=== PATIENT | female | born 1990 | race Caucasian/White ===

== ENCOUNTER → 2017-02-01 | Outpatient (CLI) | payer OTHER ==
[2017-02-01 15:48] LABS: CH 32.5; CHCM 34.8; HCT 37.1 % (34.0-46.0); HDW 2.41; HGB 12.9 gm/dL (11.4-16.0); MCH 32.8 pg (25.0-35.0); MCHC 34.9 g/dL (31.0-37.0); MCV 93.8 fL (80.0-100.0); RBC 3.95 m/uL (3.80-5.40); RDW 12.6 % (11.5-15.5); WBC 12.9 k/uL (3.8-10.6)
--- NOTE | 2017-02-01 15:51 | US ---
EXAMINATION TYPE: US OB <= 14 wk fetus late first trimester. DATE OF EXAM: 02/01/2017 3:21 PM COMPARISON: NONE CLINICAL HISTORY: Z36 confirm dates. G1 EXAM PERFORMED: Transabdominal (TA) EXAM MEASUREMENTS: GESTATIONAL AGE / DATING Physician Established: (13 weeks/2 days) EDC: 08/07/2017 Dates by LMP: (13 weeks/2 days) EDC: 08/07/2017 Dates by First Scan: (today) Dates by Current Scan for: (13 weeks/3 days) EDC: 08/06/2017 MATERNAL ANATOMY Uterus: 13.0 c 9.2 x 6.1cm Right Ovary: not seen Left Ovary: 3.4 x 2.9 x 1.7cm with CL of Post CDS / Adnexa: wnl Presence of free fluid: no Presence of corpus luteal cyst: in left ovary = 1.6 x 1.8 x 1.0cm Presence of subchorionic bleed: no GESTATION / SURVEY CRL: 7.2 (13 weeks/3 days) Yolk Sac (normal less than 6mm): not seen Heart Rate: 153 bpm Rhythm: Normal IUP: Viable IUP Date of LMP: 10/31/2016 Beta HcG (if available): NA Single live intrauterine gestation is confirmed as gestational sac and pole are seen. The yolk sac is not clearly identified. No free fluid is seen in pelvis. Right ovary is not seen. Left ovary is identified. Within left ovary there is 1.8 cm hypoechoic perip heral lesion felt to reflect corpus luteal cyst. IMPRESSION: Single live intrauterine gestation is confirmed, mean crown-rump length is 7.2 cm corresp onding to a 13 week 3 day old fetus.
[2017-02-01 15:56] LABS: Glucose 80 mg/dL (74-99); Non-African American GFR(MDRD) >60 (>60 ml/min/1.73 sqM)
[2017-02-01 16:28] LABS: Hepatitis B Surface Ag Index 0.07
== END ==
LOC: RADUSWWP 15:02
PROVIDERS: ATTEND Obstetrics & Gynecology
DX: Z36 Encounter for antenatal screening of mother (principal); Z34.01 Encounter for supervision of normal first pregnancy, first trimester; Z3A.13 13 weeks gestation of pregnancy
CPT/HCPCS: 36415; 76801; 82565; 82947; 85027; 86762; 86780; 86850; 86900; 86901; 87340

== ENCOUNTER 2017-04-11 10:45 | Outpatient (CLI) | payer SELFPAY ==
[2017-04-11 11:24] VITALS: BP 132/65; PULSE 90; RESP 16; TEMP 97.5
--- NOTE | 2017-04-11 20:21 | P.MSEPDOC ---
Presenting Problems - Arrival Data Date of Arrival on Unit: 04/11/17 Time of Arrival on Unit: 10:47 Mode of Transport: Ambulatory - Complaint OB-Reason for Admission/Chief Complaint: Observation/Evaluation Comment: ffn Medical History - Information : 1 Para: 0 Term: 0 : 0 Abortions: Spontaneous or Elective: 0 Number of Living Children: 0 - Gestational Age Expected Date of Delivery: 08/07/17 Gestational Age by GERMAN (wks/days): 23 Weeks and 1 Days Review of Systems - Review of Systems Constitutional: No problems Breast: No problems ENT: No problems Cardiovascular: No problems Respiratory: No problems Gastrointestinal: No problems Genitourinary: No problems Musculoskeletal: No problems Neurological: No problems Skin: No problems Vital Signs - Temperature Temperature: 97.5 F Temperature Source: Temporal Artery Scan - Pulse Right Brachial Pulse Rate: 90 - Respirations Respiratory Rate: 16 Oxygen Delivery Method: Room Air - Blood Pressure Right Arm Blood Pressure: 132/65 Blood Pressure Mean: 87 Blood Pressure Source: Automatic Cuff Medical Screen Scoring (Pre) - Cervical Exam Dilation: Exam Deferred - Uterine Contractions Frequency: N/A - Maternal Vital Signs Maternal Temperature: N/A Maternal Blood Pressure: N/A Signs of Preeclampsia: N/A Maternal Respirations: N/A - Maternal Trauma Maternal Trauma: N/A - Assessment Baseline FHR: 140 Heart Rate - NICHD Category: Category II (Indeterminate) = 3 - Total Score Total Score (Pre): 3 - Level of Risk Level of Risk: Low (0-5) Physician Notification (Post) - Physician Notified Physician Notified Date: 04/11/17 Physician Notified Time: 12:36 Spoke With: Dr. Laurent - Notification Comment Comment: Doctor at pt bedside Disposition - Disposition OB Disposition: Discharge to home, Written follow up instructions reviewed Discharge Date: 04/11/17 Discharge Time: 13:20 I agree with the RN Medical Screening Exam: Yes Risk & Benefit of care provided described in d/c instruction: Yes Diagnosis: 23 WEEKS GESTATION OF
== END 2017-04-11 13:20 | disposition home or self-care (01) ==
LOC: FBPOP 10:45
PROVIDERS: ATTEND Obstetrics & Gynecology
DX: Z34.92 Encounter for supervision of normal pregnancy, unspecified, second trimester (principal); Z3A.23 23 weeks gestation of pregnancy
CPT/HCPCS: 82731; 99213

== ENCOUNTER 2017-08-01 22:47 | Emergency (ER) | payer OTHER ==
[2017-08-01] MEDS ORDERED: SODIUM CHLORIDE 0.9% 1,000 ML IV STA (23:04)
[2017-08-01] MEDS ORDERED: KETOROLAC 30 MG/ML 1 ML VIAL IVP STA (23:11)
[2017-08-01] MEDS ORDERED: ONDANSETRON 4 MG/2 ML VIAL IVP STA (23:11)
[2017-08-01] MEDS ORDERED: HYDROmorphone 1 MG/ML 1 ML SYRINGE IVP STA (23:11)
[2017-08-01 23:29] LABS: Basophils # (A) 0.1 k/uL (0-0.2); Basophils % (A) 1 %; CH 28.8; CHCM 34.2; Eosinophils # (A) 0.3 k/uL (0-0.7); Eosinophils % (A) 2 %; HCT 40.5 % (34.0-46.0); HDW 2.75; HGB 13.5 gm/dL (11.4-16.0); Luc # (Auto) 0.15; Luc % (Auto) 1; Lymphocytes # (A) 3.7 k/uL (1.0-4.8); Lymphocytes % (A) 26 %; MCH 28.1 pg (25.0-35.0); MCHC 33.2 g/dL (31.0-37.0); MCV 84.5 fL (80.0-100.0); Mean Platelet Volume 7.5; Monocytes # (A) 0.6 k/uL (0-1.0); Monocytes % (A) 4 %; Neutrophils # (A) 9.5 k/uL (1.3-7.7); Neutrophils % (A) 66 %; RBC 4.79 m/uL (3.80-5.40); RDW 13.8 % (11.5-15.5); WBC 14.3 k/uL (3.8-10.6); WBC (Perox) 14.55
--- NOTE | 2017-08-01 23:29 | ED ---
Abdominal Pain HPI - General Chief Complaint: Abdominal Pain Stated Complaint: Abd Pain Time Seen by Provider: 08/01/17 23:03 Source: patient, RN notes reviewed Mode of arrival: wheelchair Limitations: no limitations - History of Present Illness Initial Comments: 26-year-old female presents emergency Department chief complaint right flank pain. Patient states she had sudden onset of pain 2 hours ago. Patient has had nausea and vomiting. Patient has fever, chills, dysuria, hematuria. Patient has no prior history of kidney stones. Patient's a prior 2 months ago. Patient states the pain is unbearable. Patient states nothing makes it feel better or worse. - Related Data Previous Rx's Medication Instructions Recorded Hydrocodone/Acetaminophen [Tsaile 1 tab PO Q6HR PRN #15 tab 08/02/17 5-325] Ondansetron Odt [Zofran Odt] 4 mg PO Q8HR PRN #10 tab 08/02/17 Allergies Allergy/AdvReac Type Severity Reaction Status Date / Time No Known Allergies Allergy Verified 08/01/17 22:51 Review of Systems ROS Statement: Those systems with pertinent positive or pertinent negative responses have been documented in the HPI. ROS Other: All systems not noted in ROS Statement are negative. Past Medical History Past Medical History: No Reported History History of Any Multi-Drug Resistant Organisms: None Reported Past Surgical History: Section Past Psychological History: No Psychological Hx Reported Smoking Status: Never smoker Past Alcohol Use History: None Reported Past Drug Use History: None Reported General Exam Limitations: no limitations General appearance: alert, in no apparent distress Head exam: Present: atraumatic, normocephalic, normal inspection Respiratory exam: Present: normal lung sounds bilaterally. Absent: respiratory distress, wheezes, rales, rhonchi, stridor Cardiovascular Exam: Present: regular rate, normal rhythm, normal heart sounds. Absent: systolic murmur, diastolic murmur, rubs, gallop, clicks GI/Abdominal exam: Present: soft, tenderness (Mild right-sided), normal bowel sounds. Absent: distended, guarding, rebound, rigid Back exam: Present: CVA tenderness (R). Absent: CVA tenderness (L) Neurological exam: Present: alert, oriented X3, CN II-XII intact Skin exam: Present: warm, dry, intact, normal color. Absent: rash Course Vital Signs 08/01/17 08/02/17 22:49 00:32 Temperature 98.0 F 97.9 F Pulse Rate 95 76 Respiratory 20 16 Rate Blood Pressure 140/95 115/74 O2 Sat by Pulse 99 97 Oximetry Medical Decision Making - Medical Decision Making 26-year-old female presented emergency from for lower abdominal pain. Patient' s CT, lab work urinalysis within normal limits. Patient complains of burning type pain across her incision. This may related to scar tissue versus adhesions. Patient has no evidence of infection and she states pain has improved. Patient will follow-up with her [facility] return parameters were discussed. - Lab Data Result diagrams: 08/01/17 23:14 08/01/17 23:14 Lab Results 08/01/17 08/01/17 08/02/17 Range/Units 23:14 23:14 00:36 WBC 14.3 H (3.8-10.6) k/uL RBC 4.79 (3.80-5.40) m/uL Hgb 13.5 (11.4-16.0) gm/dL Hct 40.5 (34.0-46.0) % MCV 84.5 (80.0-100.0) fL MCH 28.1 (25.0-35.0) pg MCHC 33.2 (31.0-37.0) g/dL RDW 13.8 (11.5-15.5) % Plt Count 320 (150-450) k/uL Neutrophils % 66 % Lymphocytes % 26 % Monocytes % 4 % Eosinophils % 2 % Basophils % 1 % Neutrophils # 9.5 H (1.3-7.7) k/uL Lymphocytes # 3.7 (1.0-4.8) k/uL Monocytes # 0.6 (0-1.0) k/uL Eosinophils # 0.3 (0-0.7) k/uL Basophils # 0.1 (0-0.2) k/uL Sodium 139 (137-145) mmol/L Potassium 4.4 (3.5-5.1) mmol/L Chloride 106 (98-107) mmol/L Carbon Dioxide 24 (22-30) mmol/L Anion Gap 9 mmol/L BUN 11 (7-17) mg/dL Creatinine 0.70 (0.52-1.04) mg/dL Est GFR (MDRD) Af Amer >60 (>60 ml/min/1.73 sqM) Est GFR (MDRD) Non-Af >60 (>60 ml/min/1.73 sqM) Glucose 92 (74-99) mg/dL Calcium 9.6 (8.4-10.2) mg/dL Total Bilirubin 0.2 (0.2-1.3) mg/dL AST 30 (14-36) U/L ALT 40 (9-52) U/L Alkaline Phosphatase 97 (38-126) U/L Total Protein 7.3 (6.3-8.2) g/dL Albumin 4.4 (3.5-5.0) g/dL Amylase 52 (30-110) U/L Lipase 99 (23-300) U/L Urine Color Urine Appearance (Clear) Urine pH (5.0-8.0) Ur Specific [place] (1.001-1.035) Urine Protein (Negative) Urine Glucose (UA) (Negative) Urine Ketones (Negative) Urine Blood (Negative) Urine Nitrite (Negative) Urine Bilirubin (Negative) Urine Urobilinogen (<2.0) mg/dL Ur Leukocyte Esterase (Negative) Urine HCG, Qual Not Detected (Not Detectd) 08/02/17 Range/Units 00:36 WBC (3.8-10.6) k/uL RBC (3.80-5.40) m/uL Hgb (11.4-16.0) gm/dL Hct (34.0-46.0) % MCV (80.0-100.0) fL MCH (25.0-35.0) pg MCHC (31.0-37.0) g/dL RDW (11.5-15.5) % Plt Count (150-450) k/uL Neutrophils % % Lymphocytes % % Monocytes % % Eosinophils % % Basophils % % Neutrophils # (1.3-7.7) k/uL Lymphocytes # (1.0-4.8) k/uL Monocytes # (0-1.0) k/uL Eosinophils # (0-0.7) k/uL Basophils # (0-0.2) k/uL Sodium (137-145) mmol/L Potassium (3.5-5.1) mmol/L Chloride (98-107) mmol/L Carbon Dioxide (22-30) mmol/L Anion Gap mmol/L BUN (7-17) mg/dL Creatinine (0.52-1.04) mg/dL Est GFR (MDRD) Af Amer (>60 ml/min/1.73 sqM) Est GFR (MDRD) Non-Af (>60 ml/min/1.73 sqM) Glucose (74-99) mg/dL Calcium (8.4-10.2) mg/dL Total Bilirubin (0.2-1.3) mg/dL AST (14-36) U/L ALT (9-52) U/L Alkaline Phosphatase (38-126) U/L Total Protein (6.3-8.2) g/dL Albumin (3.5-5.0) g/dL Amylase (30-110) U/L Lipase (23-300) U/L Urine Color Light Yellow Urine Appearance Clear (Clear) Urine pH 7.0 (5.0-8.0) Ur Specific [place] 1.009 (1.001-1.035) Urine Protein Negative (Negative) Urine Glucose (UA) Negative (Negative) Urine Ketones Negative (Negative) Urine Blood Negative (Negative) Urine Nitrite Negative (Negative) Urine Bilirubin Negative (Negative) Urine Urobilinogen <2.0 (<2.0) mg/dL Ur Leukocyte Esterase Negative (Negative) Urine HCG, Qual (Not Detectd) Disposition Clinical Impression: Abdominal pain Disposition: HOME SELF-CARE Condition: Stable Instructions: Abdominal Pain (ED) Additional Instructions: Please return to the Emergency Department if symptoms worsen or any other concerns. Prescriptions: Hydrocodone/Acetaminophen [Tsaile 5-325] 1 tab PO Q6HR PRN #15 tab PRN Reason: Pain Ondansetron Odt [Zofran Odt] 4 mg PO Q8HR PRN #10 tab PRN Reason: Nausea Referrals: None,Stated [Primary Care Provider] - 1-2 days Time of Disposition: 01:10
[2017-08-01 23:40] LABS: ALT 40 U/L (9-52); AST 30 U/L (14-36); Alkaline Phosphatase 97 U/L (38-126); Amylase 52 U/L (30-110); Anion Gap 9 mmol/L; Blood Urea Nitrogen 11 mg/dL (7-17); Calcium 9.6 mg/dL (8.4-10.2); Carbon Dioxide 24 mmol/L (22-30); Chloride 106 mmol/L (98-107); Glucose 92 mg/dL (74-99); Non-African American GFR(MDRD) >60 (>60 ml/min/1.73 sqM); Potassium 4.4 mmol/L (3.5-5.1); Sodium 139 mmol/L (137-145); Total Bilirubin 0.2 mg/dL (0.2-1.3); Total Protein 7.3 g/dL (6.3-8.2)
[2017-08-02] MEDS ORDERED: ONDANSETRON 4 MG/2 ML VIAL IVP STA (00:16)
[2017-08-02] MEDS ORDERED: SODIUM CHLORIDE 0.9% 1,000 ML IV ONE (00:16)
--- NOTE | 2017-08-02 00:27 | CT ---
EXAM: CT Abdomen and Pelvis Without Intravenous Contrast CLINICAL HISTORY: Abdominal pain TECHNIQUE: Axial computed tomography images of the abdomen and pelvis without intravenous contrast. CTDI is 15.40 mGy and DLP is 816.40 mGy-cm. This CT exam was performed using one or more of the following dose reduction techniques: automated exposure control, adjustment of the mA and/or kV according to patient size, and/or use of iterative reconstruction technique. COMPARISON: Supine abdomen, 2 views, 07/24/2014 FINDINGS: Lower thorax: No acute findings. ABDOMEN: Liver: Unremarkable. Gallbladder and bile ducts: Unremarkable. No calcified stones. No ductal dilation. Pancreas: Unremarkable. No ductal dilation. Spleen: Unremarkable. No splenomegaly. Adrenals: Unremarkable. No mass. Kidneys and ureters: Unremarkable. No obstructing stones. No hydronephrosis. Stomach and bowel: Stomach is mildly distended with ingested material. No obstruction. No mucosal thickening. Appendix: Normal appendix visualized. PELVIS: Bladder: Unremarkable. No stones. Reproductive: Unremarkable as visualized. ABDOMEN and PELVIS: Intraperitoneal space: Small amount of pelvic free fluid, most likely to be physiologic. No free air. Bones/joints: No acute fracture. No dislocation. Soft tissues: Unremarkable. Vasculature: Unremarkable. No abdominal aortic aneurysm. Lymph nodes: Unremarkable. No enlarged lymph nodes. IMPRESSION: 1. Unremarkable CT abdomen pelvis without contrast. No acute intra- abdominal process. 2. No renal, ureteral or bladder stone. 3. Normal appendix visualized.
[2017-08-02 00:36] VITALS: RESP 16; TEMP 97.9
[2017-08-02 00:58] LABS: Appearance,Urine Clear (Clear); Bilirubin,Urine Negative (Negative); Glucose,Urine (UA) Negative (Negative); Ketones,Urine Negative (Negative); Leukocyte Esterase,Urine Negative (Negative); Nitrite,Urine Negative (Negative); Protein,Urine Negative (Negative); Specific Gravity,Urine 1.009 (1.001-1.035); UA Billing (MACRO vs. MICRO) CHEM; Urobilinogen,Urine <2.0 mg/dL (<2.0)
[2017-08-02 01:24] VITALS: BP 111/59; PULSE 85
== END 2017-08-02 01:27 | disposition home or self-care (01) ==
LOC: EC 22:47
DX: R10.9 Unspecified abdominal pain (principal); R11.2 Nausea with vomiting, unspecified; R50.9 Fever, unspecified; R30.0 Dysuria; R31.9 Hematuria, unspecified
CPT/HCPCS: 36415; 80053; 82150; 83690; 85025; 81003; 81025; 74176; 99284; 96374; 96375 ×2; 96376; 96361 ×2; J2405 ×2; J1885; J1170

== ENCOUNTER 2018-04-11 01:52 | Inpatient (IN) | payer OTHER ==
[2018-04-11] MEDS ORDERED: [UNRECOGNIZED DRUG - OTHER] ONE (02:00)
[2018-04-11] MEDS ORDERED: BETAMET ACET-BETAMETH SOD PHOS 6 MG/ML VIAL IM ONE (02:00)
[2018-04-11] MEDS ORDERED: CITRIC ACID-SODIUM CITRATE 15 ML CUP ONE (02:00)
[2018-04-11] MEDS ORDERED: MAGNESIUM SULFATE IV ONE (02:00)
[2018-04-11] MEDS ORDERED: LACTATED RINGERS 1,000 ML BAG IV ONE (02:00)
[2018-04-11] MEDS ORDERED: [UNRECOGNIZED DRUG - OTHER] IV ONE (02:00)
[2018-04-11] MEDS ORDERED: OXYTOCIN 10 UNIT/ML 1 ML VIAL ONE (03:40)
[2018-04-11] MEDS ORDERED: SUCCINYLCHOLINE CHLORIDE 100 MG/5 ML SYR IV ONE (03:40)
[2018-04-11] MEDS ORDERED: KETOROLAC 30 MG/ML 1 ML VIAL ONE (03:40)
[2018-04-11] MEDS ORDERED: PROPOFOL 10 MG/ML 20 ML VIAL IV ONE (03:40)
[2018-04-11] MEDS ORDERED: MORPHINE SULFATE (PF) 0.3 MG/0.3 ML SYR ONE (03:40)
[2018-04-11] MEDS ORDERED: ONDANSETRON 4 MG/2 ML VIAL ONE (03:40)
[2018-04-11] MEDS ORDERED: fentaNYL (PF) 50 MCG/ML 2 ML AMP ONE (03:40)
[2018-04-11 06:27] LABS: Basophils % (A) 0 %; Eosinophils # (A) 0.2 k/uL (0-0.7); Eosinophils % (A) 1 %; HGB 10.9 gm/dL (11.4-16.0); Lymphocytes # (A) 1.6 k/uL (1.0-4.8); Lymphocytes % (A) 10 %; MCH 27.4 pg (25.0-35.0); MCHC 32.9 g/dL (31.0-37.0); MCV 83.2 fL (80.0-100.0); Mean Platelet Volume 6.8; Monocytes # (A) 0.7 k/uL (0-1.0); Monocytes % (A) 4 %; Neutrophils # (A) 13.5 k/uL (1.3-7.7); Neutrophils % (A) 83 %; Platelet Count 253 k/uL (150-450); RBC 3.96 m/uL (3.80-5.40); RDW 14.1 % (11.5-15.5); WBC 16.3 k/uL (3.8-10.6)
[2018-04-11] MEDS ORDERED: ONDANSETRON 4 MG/2 ML VIAL IVP PRN (06:36)
[2018-04-11] MEDS ORDERED: diphenhydrAMINE 25 MG CAP PO PRN (06:36)
[2018-04-11] MEDS ORDERED: METOCLOPRAMIDE 5 MG/ML 2 ML VIAL IVP PRN (06:36)
[2018-04-11] MEDS ORDERED: NALOXONE 0.4 MG/ML 1 ML VIAL IV PRN (06:36)
[2018-04-11] MEDS ORDERED: diphenhydrAMINE 50 MG/ML 1 ML VIAL IVP PRN ×2 (06:36)
[2018-04-11] MEDS ORDERED: ACETAMINOPHEN TAB 325 MG TAB PO PRN (06:36)
[2018-04-11] MEDS ORDERED: ZOLPIDEM 5 MG TAB PO PRN (06:36)
[2018-04-11] MEDS ORDERED: CITRIC ACID-SODIUM CITRATE 15 ML CUP PO ONE (06:36)
[2018-04-11] MEDS ORDERED: diphenhydrAMINE 50 MG CAP PO PRN (06:36)
[2018-04-11] MEDS ORDERED: LACTATED RINGERS 1,000 ML IV SCH (06:45)
[2018-04-11] MEDS: MAGNESIUM SULFATE-WATER PMX 20 GM in WATER FOR INJECTION 1 500ML.BAG IV SCH ×2 (07:17→18:38)
[2018-04-11] MEDS: SENNOSIDES-DOCUSATE SODIUM 1 EACH TAB PO SCH ×2 (08:40→21:07)
[2018-04-11] MEDS: KETOROLAC 30 MG/ML 1 ML VIAL IVP SCH ×2 (12:23→18:42)
[2018-04-11] MEDS: LACTATED RINGERS 1,000 ML IV SCH ×2 (20:29→21:07)
[2018-04-12] MEDS: KETOROLAC 30 MG/ML 1 ML VIAL IVP SCH ×4 (00:30→20:41)
--- NOTE | 2018-04-12 05:43 | P.PNOBGPC ---
Subjective - Subjective Principal diagnosis: labor Interval history: Complaining of some ongoing moderate lochia. Sore this morning. Tolerating a general diet. Updates from at [facility] are reassuring at this time. Patient reports: Reports appetite normal, Reports voiding normally, Reports pain well controlled, Reports ambulating normally, Denies dizzy ambulation, Denies nauseated : transported Objective - Vital Signs Latest vital signs: Vital Signs Temp Pulse Resp BP BP Pulse Ox 04/12/18 04:00 98.1 F 74 16 102/58 04/12/18 00:00 98.0 F 77 16 105/63 98 04/11/18 20:00 98.1 F 79 18 112/62 95 04/11/18 16:00 98.6 F 79 16 120/59 04/11/18 11:42 99.1 F 90 16 101/52 04/11/18 08:00 98.8 F 98 16 106/64 04/11/18 06:35 98.4 F 104 H 16 118/56 100 04/11/18 06:05 100 16 125/62 97 Intake and Output 04/11/18 04/11/18 04/12/18 14:59 22:59 06:59 Output Total 600 100 150 Balance -600 -100 -150 Output: Urine 600 100 150 Other: # Voids 1 - Exam Extremities: Present: normal, edema Abdomen: Present: normal appearance, soft, tenderness. Absent: distention Incision: Present: normal, dry, intact Uterus: Present: normal, firm - Labs Labs: Abnormal Lab Results - Last 24 Hours (Table) 04/11/18 Range/Units 02:26 WBC 16.3 H (3.8-10.6) k/uL Hgb 10.9 L (11.4-16.0) gm/dL Hct 33.0 L (34.0-46.0) % Neutrophils # 13.5 H (1.3-7.7) k/uL Assessment and Plan (1) History of section, classical Current Visit: Yes Status: Acute Code(s): Z98.891 - HISTORY OF UTERINE SCAR FROM PREVIOUS SURGERY SNOMED Code(s): 664000219 (2) labor Current Visit: Yes Status: Acute Code(s): O60.00 - LABOR WITHOUT DELIVERY, UNSPECIFIED TRIMESTER SNOMED Code(s): 6913578 (3) North cerclage present, antepartum Current Visit: Yes Status: Acute Code(s): O34.30 - MATERNAL CARE FOR CERVICAL INCOMPETENCE, UNSP TRIMESTER SNOMED Code(s): 86768594 (4) with 26 completed weeks gestation Current Visit: Yes Status: Acute Code(s): Z3A.26 - 26 WEEKS GESTATION OF SNOMED Code(s): 34666380 (5) Breech delivery Current Visit: Yes Status: Acute Code(s): O32.1XX0 - MATERNAL CARE FOR BREECH PRESENTATION, UNSP SNOMED Code(s): 971022972 Plan: Postop day 1 status post repeat low transverse section for labor at 26+ weeks. History of previous classical section. Infant weighing 900 g. She is recovering well at this time. She declines possible discharge home today to be with the infant at [facility] therefore anticipate probable discharge tomorrow. Continue routine postop care. Please note history and physical and operative report are in paper chart for this patient secondary to computer issues at the time of the events.
--- NOTE | 2018-04-12 06:43 | P.PN ---
Progress Note - Text Progress Note Date: 04/12/18 27 yo female status post . Post-op day #1. Patient received intrathecal Duramorph. Patient was seen today, sitting up in bed no complaints, pain VAS score 0/10, no headache, no itching, no nausea and vomiting. Assessment and plan: Doing well in general no complications from anesthesia.
[2018-04-12 07:18] LABS: Basophils % (A) 0 %; Eosinophils % (A) 0 %; HCT 28.9 % (34.0-46.0); Lymphocytes # (A) 1.7 k/uL (1.0-4.8); Lymphocytes % (A) 10 %; MCH 27.6 pg (25.0-35.0); MCHC 32.6 g/dL (31.0-37.0); MCV 84.6 fL (80.0-100.0); Mean Platelet Volume 7.3; Monocytes # (A) 0.8 k/uL (0-1.0); Monocytes % (A) 5 %; Neutrophils # (A) 15.3 k/uL (1.3-7.7); Neutrophils % (A) 84 %; Platelet Count 231 k/uL (150-450); RBC 3.42 m/uL (3.80-5.40); RDW 14.2 % (11.5-15.5); WBC 18.2 k/uL (3.8-10.6)
[2018-04-12 07:22] LABS: HGB 9.4 gm/dL (11.4-16.0)
[2018-04-12] MEDS: MAGNESIUM SULFATE-WATER PMX 20 GM in WATER FOR INJECTION 1 500ML.BAG IV SCH ×2 (22:26→22:27)
[2018-04-12] MEDS: SENNOSIDES-DOCUSATE SODIUM 1 EACH TAB PO SCH (22:27)
[2018-04-12] MEDS: LACTATED RINGERS 1,000 ML IV SCH (22:27)
[2018-04-12] MEDS: IBUPROFEN 600 MG TAB PO PRN (23:01)
[2018-04-13] MEDS: LACTATED RINGERS 1,000 ML IV SCH (04:20)
[2018-04-13] MEDS: IBUPROFEN 600 MG TAB PO PRN (08:32)
[2018-04-13] MEDS: SENNOSIDES-DOCUSATE SODIUM 1 EACH TAB PO SCH (08:33)
[2018-04-13 08:48] VITALS: BP 129/68; PULSE 75; RESP 16; TEMP 98.5
[2018-04-13] MEDS ORDERED: MEASLES-MUMPS-RUBELLA VACC/PF 12,500 UNIT/0.5 ML VIAL SQ ONE (09:41)
--- NOTE | 2018-04-13 09:41 | P.DS ---
Providers Date of admission: 04/11/18 01:52 Expected date of discharge: 04/13/18 Attending physician: Gwendolyn Lockhart Primary care physician: Stated None - Discharge Diagnosis(es) (1) Breech delivery Current Visit: Yes Status: Acute (2) History of section, classical Current Visit: Yes Status: Acute (3) North cerclage present, antepartum Current Visit: Yes Status: Acute (4) with 26 completed weeks gestation Current Visit: Yes Status: Acute (5) labor Current Visit: Yes Status: Acute Hospital Course: This is a very pleasant 27-year-old 2 para 0101 at 26-4/7 weeks with complaints of contractions starting on 531 12:30 in the evening. Patient noted these contractions to be progressively more painful and presented to the hospital. On admission she was noted to be 1 cm with cerclage in place. Magnesium bolus was started and she was given 1 dose of steroids. Bedside ultrasound revealed a breech fetus but her cervix had advanced to 3+ centimeters with a bulging bag of water. Patient was then counseled for the need for repeat section given active labor. Patient noted history of classical in the past. Patient was not able to be transferred secondary to cervical dilation and active labor. Risks were reviewed with the patient by Dr. Lockhart in detail about prematurity and surgical risks. The was completed without difficulty for further details on the C- section please see the operative report. Patient's course has been uneventful. On this day #3 she is ambulating and voiding without difficulty she is tolerating a regular diet without nausea or vomiting and she does wish to be discharged home. She states is doing well is on CPAP and progressing well in the NICU Plan - Discharge Summary New Discharge Prescriptions: No Action Progesterone, Micronized [Progesterone] 100 mg PO DAILY Discharge Medication List Progesterone, Micronized [Progesterone] 100 mg PO DAILY 04/11/18 [History] Discharge Disposition: HOME SELF-CARE
== END 2018-04-13 12:00 | disposition home or self-care (01) | DRG 766 ==
LOC: 4FBP 01:52
PROVIDERS: ADMIT Obstetrics & Gynecology; ATTEND Obstetrics & Gynecology
PROC: 10D00Z1 Extraction of Products of Conception, Low, Open Approach (ICD-10-PCS; principal; 2018-04-12)
DX: O60.12X0 Preterm labor second trimester with preterm delivery second trimester, not applicable or unspecified (principal); O34.211 Maternal care for low transverse scar from previous cesarean delivery; O32.1XX0 Maternal care for breech presentation, not applicable or unspecified; Z37.0 Single live birth; Z3A.26 26 weeks gestation of pregnancy
CPT/HCPCS: 85025; 86701; 86850; 86900; 86901; 88307; 90471; 90707; 96361; 96365; 99214